=== PATIENT | female | born 1980 | race Hispanic/Latino ===

== ENCOUNTER 2017-06-05 14:33 | Observation (INO) | payer MEDICAID ==
[2017-06-05 14:33] VITALS: BMI 24.4
[2017-06-05] MEDS ORDERED: Sodium Chloride 0.9% 1,000 ML IV STA (15:00)
--- NOTE | 2017-06-05 15:04 | ED PDOC ---
HPI: Psych/Substance Abuse Time Seen by Provider: 06/05/17 14:48 Chief Complaint (Nursing): Alcohol Ingestion Chief Complaint (Provider): Alcohol Ingestion History Per: Patient History/Exam Limitations: intoxication Onset/Duration Of Symptoms: Hrs (x3) Current Symptoms Are (Timing): Still Present Additional Complaint(s): Vanesa Garcia is a 36 year old female with previous medical history of alcohol abuse, anxiety, depression, hypercholesterolemia and hypothyroidism, who presents to the emergency department via EMS accompanied by her mother for an evaluation of alcohol intoxication associated with anxiety ongoing for 3 hours prior to arrival. Denied abdominal pain, nausea, vomiting, chest pain, shortness of breath, suicidal or homicidal ideation. Patient's mother stated she was seen at clinic which suggested alcohol detoxification before she was brought to ED. Last drink 12pm. PMD: none provided Past Medical History Reviewed: Historical Data, Nursing Documentation, Vital Signs Vital Signs: Last Vital Signs Temp 97 F L 06/05/17 14:38 Pulse 97 H 06/05/17 14:38 Resp 16 06/05/17 14:38 BP 121/90 06/05/17 14:38 Pulse Ox 98 06/05/17 14:38 - Medical History PMH: Anxiety, Depression, Gastritis, Migraine, Pancreatitis, Seizures (from etoh withdrawal ) Denies: Diabetes, Hepatitis, HIV, HTN, Chronic Kidney Disease, Sexually Transmitted Disease - Surgical History Surgical History: No Surg Hx - Family History Family History: States: Unknown Family Hx - Living Arrangements Living Arrangements: With Family - Social History Current smoker - smoking cessation education provided: No Ex-Smoker (has not smoked in the last 12 months): No Alcohol: > 2 Drinks/Day Drugs: Denies - Home Medications Home Medications: Ambulatory Orders Medication Instructions Recorded Cetirizine HCl [Zyrtec Allergy] 10 mg PO PRN PRN 11/22/15 Folic Acid 1 mg PO DAILY 11/22/15 Omeprazole 40 mg PO DAILY 11/22/15 Sertraline [Zoloft] 150 mg PO DAILY 11/22/15 Topiramate [Topamax] 50 mg PO BID 11/22/15 Vitamin B Complex 1 each PO DAILY 11/22/15 traZODone [trazODONE HYDROCHLORIDE] 100 mg PO HS 11/22/15 Gabapentin [Neurontin] 300 mg PO BID #60 cap 11/26/15 QUEtiapine [SEROquel] 50 mg PO HS #30 tab 11/26/15 Sertraline [Zoloft] 100 mg PO BID #60 tab 11/26/15 Topiramate [Topamax] 25 mg PO BID #60 tab 11/26/15 Topiramate [Topamax] 50 mg PO BID #0 tab 11/26/15 - Allergies Allergies/Adverse Reactions: Allergies Allergy/AdvReac Type Severity Reaction Status Date / Time shellfish derived AdvReac VOMITING Verified 06/05/17 14:38 Review of Systems ROS Statement: Except As Marked, All Systems Reviewed And Found Negative Cardiovascular: Negative for: Chest Pain Respiratory: Negative for: Shortness of Breath Gastrointestinal: Negative for: Nausea, Vomiting, Abdominal Pain Psych: Positive for: Anxiety. Negative for: Suicidal ideation (or homicidal ideation) Physical Exam - Reviewed Nursing Documentation Reviewed: Yes Vital Signs Reviewed: Yes - Physical Exam Appears: Positive for: Non-toxic, No Acute Distress Head Exam: Positive for: ATRAUMATIC, NORMAL INSPECTION, NORMOCEPHALIC Eye Exam: Positive for: Normal appearance, EOMI, PERRL. Negative for: Nystagmus ENT: Positive for: Normal ENT Inspection Cardiovascular/Chest: Positive for: Regular Rate, Rhythm. Negative for: Chest Non Tender Respiratory: Positive for: Normal Breath Sounds. Negative for: Decreased Breath Sounds, Respiratory Distress Gastrointestinal/Abdominal: Positive for: Normal Exam, Bowel Sounds, Soft. Negative for: Tenderness Back: Positive for: Normal Inspection. Negative for: L CVA Tenderness, R CVA Tenderness Extremity: Positive for: Normal ROM. Negative for: Tenderness, Pedal Edema, Deformity Neurologic/Psych: Positive for: Alert, Oriented. Negative for: Motor/Sensory Deficits - Laboratory Results Result Diagrams: 06/05/17 15:26 06/05/17 15:26 Interpretation Of Abn Labs: 424 etoh - ECG ECG: Positive for: Interpreted By Me, Viewed By Me ECG Rhythm: Positive for: Normal QRS, Normal ST Segment, Sinus Rhythm O2 Sat by Pulse Oximetry: 98 (RA) Pulse Ox Interpretation: Normal - Progress ED Course And Treament: 1739: Stable. AAOx3. Pending sobriety. Family not comfortable taking pt. home. 184: Stable. Dr. Vasquez to take over care. Fu on sobriety and possible family to take pt. home. Medical Decision Making Medical Decision Making: Initial Impression: ETOH intoxication Initial Plan: * EKG * Alcohol serum * BMP * Drug screen, urine * Crisis eval * Urine dipstick * Urine * CBC * NS 1,000ml IV per 1,000mls/hr * POC * Admit to hospital Scribe Attestation: Documented by Dannielle Braswell, acting as a scribe for Pablo Florence MD. Provider Scribe Attestation: All medical record entries made by the Scribe were at my direction and personally dictated by me. I have reviewed the chart and agree that the record accurately reflects my personal performance of the history, physical exam, medical decision making, and the department course for this patient. I have also personally directed, reviewed, and agree with the discharge instructions and disposition. ED OBSERVATION Discharge: Yes Date of observation admission: 06/05/17 Time of observation admission: 15:00 - Observation admission statement Patient is being placed in observation because:: ETOH intoxication - Goals of Observation Goals of observation are:: clinical sobriety - Progress Note Progress Note: Time: 1630 --Patient is resting comfortably with stable vital signs. Disposition - Clinical Impression Clinical Impression: Alcoholism - Patient ED Disposition Is Patient to be Admitted: Transfer of Care - Disposition Disposition: Transfer of Care Disposition Time: 15:00 Condition: STABLE Patient Signed Over To: Estuardo Vasquez
[2017-06-05 15:39] LABS: BASO # 0.1 K/uL (0.0-0.2); BASO % 1.1 % (0.0-2.0); EOS # 0.1 K/uL (0.0-0.7); EOS % 1.1 % (0.0-4.0); HEMATOCRIT 44.9 % (34.0-47.0); LYMPH # 4.5 K/uL (1.0-4.3); LYMPH % 40.1 % (20.0-40.0); MEAN CELL VOLUME 98.9 fl (81.0-99.0); MEAN CORPUSCULAR HEMOGLOBIN 33.7 pg (27.0-31.0); MEAN CORPUSCULAR HGB CONC 34.1 g/dL (33.0-37.0); MEAN PLATELET VOLUME 7.2 fl (7.2-11.7); MONO # 0.9 K/uL (0.0-0.8); MONO % 7.9 % (0.0-10.0); NEUT # 5.6 K/uL (1.8-7.0); NEUT % 49.8 % (50.0-75.0); NRBC % 0.1 % (0.0-0.0); RED CELL DISTRIBUTION WIDTH 13.8 % (11.5-14.5); WHITE BLOOD COUNT 11.3 K/uL (4.8-10.8)
[2017-06-05 15:42] LABS: BLOOD UREA NITROGEN 18 mg/dl (7-17); CALCIUM 9.8 mg/dL (8.4-10.2); CARBON DIOXIDE 24 mmol/L (22-30); CHLORIDE 101 mmol/L (98-107); GFR AFRICAN-AMERICAN > 60; GLUCOSE,RANDOM 99 mg/dL (65-105); POTASSIUM 4.1 MMOL/L (3.6-5.0); SODIUM 143 mmol/l (132-148)
[2017-06-05 15:55] LABS: ALCOHOL SERUM 424 mg/dl (0-10)
--- NOTE | 2017-06-05 19:17 | ED PDOC ---
- Laboratory Results Result Diagrams: 06/05/17 15:26 06/05/17 15:26 - ECG O2 Sat by Pulse Oximetry: 98 (RA) Pulse Ox Interpretation: Normal Medical Decision Making Medical Decision Making: Time: 1899 --Patient was endorsed to provider by Dr. Pablo Florence MD. Pending crisis evaluation and clinical sobriety. --Patient is resting comfortably with stable vital signs. Time: 2029 --Patient continues to rest comfortably with stable vitals. Time: 2199 --Patient is resting comfortably with stable vitals. Time: 23:30 --Patient continues to rest comfortably with stable vitals. Time: 1:00 --Patient is resting comfortably with stable vitals. Time: 1:13 --Patient was evaluated by crisis and is stable for discharge home --Patient states that she will seek detox herself. Clinical Impression: Alcohol dependence Scribe Attestation: Documented by Dannielle Braswell & Mere Leal, acting as a scribe for Estuardo Vasquez MD. Provider Scribe Attestation: All medical record entries made by the Scribe were at my direction and personally dictated by me. I have reviewed the chart and agree that the record accurately reflects my personal performance of the history, physical exam, medical decision making, and the department course for this patient. I have also personally directed, reviewed, and agree with the discharge instructions and disposition. Disposition Counseled Patient/Family Regarding: Diagnosis, Need For Followup - Clinical Impression Clinical Impression: Alcoholism - POA Present On Arrival: None - Disposition Disposition: Routine/Home Disposition Time: 14:59 Condition: STABLE
[2017-06-06 01:21] VITALS: O2SAT 98
[2017-06-06 06:42] VITALS: BP 108/65; PULSE 77; RESP 14; TEMP 98
--- NOTE | 2017-06-06 10:44 | CARD ---
APPROVED REPORT EKG Measurement Heart [id number] <Conclusion> Normal sinus rhythm Normal ECG
== END 2017-06-06 06:49 | disposition home or self-care (01) ==
LOC: H.ER 14:33 → H.EROBSV 14:59
PROVIDERS: ADMIT Emergency Medicine; ATTEND Emergency Medicine
DX: F10.229 Alcohol dependence with intoxication, unspecified (principal); Y90.8 Blood alcohol level of 240 mg/100 ml or more; R56.9 Unspecified convulsions; K29.70 Gastritis, unspecified, without bleeding; G43.909 Migraine, unspecified, not intractable, without status migrainosus; F41.9 Anxiety disorder, unspecified; F32.9 Major depressive disorder, single episode, unspecified; Z87.891 Personal history of nicotine dependence
CPT/HCPCS: 80048; 80320; 80324; 80345; 80346; 80349; 80353; 80358; 80361; 81025; 82948; 83992; 85025; 93005; 96374; 99283; G0378; J2060; J7040